=== PATIENT | female | born 1995 | race American Indian/Alaskan Native ===

== ENCOUNTER 2018-11-07 07:43 | Emergency (ER) | payer BC, MEDICAID ==
[~2018-11-07] VITALS: Ht 165.1 cm; Wt 76.0 kg
[2018-11-07] MEDS: DEXAMETHASONE 10 MG/ML VIAL IM ONE (08:33)
[2018-11-07] MEDS: KETOROLAC 60MG/2ML VIAL IM ONE (08:33)
[2018-11-07 09:15] VITALS: BP 110/61
== END 2018-11-07 09:25 | disposition home or self-care (01) ==
LOC: ER 07:43
DX: J03.90 Acute tonsillitis, unspecified (principal)
CPT/HCPCS: 81025; 87070; 87430; 96372; 99283; J1100; J1885